=== PATIENT | female | born 2000 | race Caucasian/White ===

== ENCOUNTER 2024-02-27 08:31 | Emergency (ER) | payer OTHER, SELFPAY ==
[2024-02-27 08:47] VITALS: BP 118/84; PULSE 112; RESP 18; TEMP 36.8; O2SAT 100
[2024-02-27 09:17] LABS: EDSTREPNEGPOS1 Positive (Negative)
--- NOTE | 2024-02-27 09:17 | ED_ITS ---
HPI - URI/Sore Throat General Chief Complaint: Upper Respiratory Infection Stated Complaint: Fever/Sore Throat Time Seen by Provider: 02/27/24 09:17 Source: patient Mode of arrival: ambulatory Limitations: no limitations History of Present Illness HPI Narrative: 23-year-old female presents with complaint of sore throat since yesterday. Reports 2 days ago she had body aches, chills, fatigue, nausea. Vomited once. Patient concern for strep throat. All systems reviewed and negative except as noted above. Related Data Home Medications ?Medication ?Instructions ?Recorded ?Confirmed ?Last Taken ?Type lamotrigine 100 mg tablet mg 02/27/24 Unknown History lamotrigine 150 mg tablet mg 02/27/24 Unknown History norgestimate-ethinyl estradiol tablet 02/27/24 Unknown History 0.18 mg/0.215mg/0.25mg-35 mcg(28)tablet (Tri-Sprintec (28)) Allergies Allergy/AdvReac Type Severity Reaction Status Date / Time oxcarbazepine (From Allergy Severe Hives Verified 02/27/24 09:09 Trileptal) Penicillins Allergy Intermediate Hives Verified 02/27/24 09:09 Review of Systems Review of Systems: CONSTITUTIONAL: Denies fever Denies, chills, or sweats. EYES: Denies visual changes, redness, or discharge. ENT: Denies rhinorrhea, congestion. Reports sore throat. Denies otalgia. CARDIOVASCULAR: Denies chest pain, palpitations, or edema. RESPIRATORY: Denies cough or dyspnea. GASTROINTESTINAL: Denies abdominal pain, nausea, vomiting, or diarrhea. GENITOURINARY: Denies dysuria or hematuria. SKIN: Denies rash or itching. MUSCULOSKELETAL: Denies back pain, joint pain. Reports myalgia. NEUROLOGIC: Denies headache, numbness, or weakness. PSYCHIATRIC: Denies anxiety or depression. All other systems reviewed are negative, except as documented in HPI. PMFSH Comments At time of signature, agree with nursing past medical, surgical, social and family history. There is no relevant family history pertinent to the presenting complaint. Exam Narrative: GENERAL: This is a well-nourished, well-developed patient, in no apparent distress. HEAD: normocephalic, atraumatic. EYES: PERRL. Sclera clear/white. Vision is grossly intact. EARS: External ears normal, auditory canals clear and without drainage, TMs normal without perforation. Hearing grossly intact. NOSE: External nose normal with no obvious nasal discharge, nares without redness, no rhinorrhea. THROAT: Mucous membranes moist, erythematous with mild swelling. No exudates NECK: Neck supple, non-tender without lymphadenopathy, masses or thyromegaly. CARDIOVASCULAR: Regular rate and rhythm without murmurs, gallops, or rubs. RESPIRATORY: Clear to auscultation. Breath sounds equal bilaterally. No wheezes, rales, or rhonchi. SKIN: warm, Dry, intact with no suspicious lesions or rash, good texture and turgor. NEURO: awake, alert, and oriented to person, place and time. There were no obvious focal neurologic abnormalities. EXTREMITIES: No joint tenderness, effusion, or edema noted. No calf tenderness. Negative Homans sign bilaterally. BACK: Nontender without deformity. No CVA tenderness. Course Course Level of Care: Express Care Visit Vital Signs Vital signs: Vital Signs Temperature 36.8 C 02/27/24 08:47 Pulse Rate 112 H 02/27/24 08:47 Respiratory Rate 18 02/27/24 08:47 Blood Pressure 118/84 02/27/24 08:47 Pulse Oximetry 100 02/27/24 08:47 Oxygen Delivery Room Air 02/27/24 08:47 Temperature 36.8 C 02/27/24 08:47 Pulse Rate 112 H 02/27/24 08:47 Respiratory Rate 18 02/27/24 08:47 Blood Pressure 118/84 02/27/24 08:47 Pulse Oximetry 100 02/27/24 08:47 Oxygen Delivery Room Air 02/27/24 08:58 Reviewed MDM - URI/Sore Throat MDM Narrative Medical decision making narrative: Patient is aware of diagnosis, understands and agrees to treatment plan. Anticipatory guidance given. Patient agrees to follow-up as directed and is aware of reasons to seek care at the emergency department. Portions of this record may have been created with voice recognition software Positive rapid strep. Patient well-appearing, nontoxic. Will prescribe azithromycin to treat strep. Patient agrees with plan of care. Differential Diagnosis Differential diagnosis: Likely upper respiratory infection, sinusitis, viral infection, influenza and pharyngitis Lab Data Labs: Lab Results 02/27/24 Range/Units 09:15 POC Grp A Strep Screen Pending Discharge Plan Discharge Clinical Impression: Strep throat Patient Disposition: Home, Self-Care Condition: Stable Instructions: Antibiotic Form, Strep Throat (ED) Additional Instructions: Your strep test was positive today. Take antibiotic as prescribed until gone. Change toothbrush after taking antibiotic for 24 hours. Take Tylenol or ibuprofen every 6-8 hours as needed for pain and fever. Drink plenty water and rest. Follow-up with your primary care physician if symptoms are not improving. Patient Language: Ukrainian Prescriptions: New azithromycin 250 mg tablet See Rx Instructions .ROUTE .COMPLEX Qty: 6 0RF Rx Instructions: For 250 mg dose pack: take 500 mg today (day 1), then 250 mg for 4 days (days 2-5) No Action lamotrigine 150 mg tablet norgestimate-ethinyl estradiol [Tri-Sprintec (28)] 0.18/0.215/0.25 mg-35 mcg (28) tablet lamotrigine 100 mg tablet Follow-up/Referrals: PHYSICIAN,SHRINKER [Primary Care Provider] - Stand Alone Forms: Work/School Release IP Time of Disposition: 09:22
[2024-02-27 09:27] LABS: EDCOVIDSCREEN Negative (Negative); EDINFLUASCREEN Negative (Negative); EDINFLUBSCREEN Negative (Negative)
== END 2024-02-27 09:23 | disposition home or self-care (01) ==
PROVIDERS: Emergency Provider Nurse Practitioner Family
DX: J02.0 Streptococcal pharyngitis (principal)
CPT/HCPCS: 87426; 87804; 87880; 99203; G0463

== ENCOUNTER 2024-06-27 17:02 | Emergency (ER) | payer OTHER, SELFPAY ==
[2024-06-27 17:16] VITALS: BP 143/84; PULSE 80; RESP 16; TEMP 36.4; O2SAT 100
--- NOTE | 2024-06-27 17:18 | ED_ITS ---
HPI - General Adult General Chief complaint: Nausea/Vomiting/Diarrhea Stated complaint: LIGHT HEADED/NAUSEA/TINGLING/? ALLERGIC RXN Time Seen by Provider: 06/27/24 17:18 Source: patient Mode of arrival: ambulatory Limitations: no limitations History of Present Illness HPI narrative: 24 yo F presents with concerns for allergic reaction. Ate dinner tuesday night and about 15 minutes after felt tingly, tongue felt thick and had 1 episode of diarrhea. Took at benadryl and felt better. Woke up 5hrs later and took another benadryl. the next day was tired and slept most of the day. Since then has had intermittent tingling, whole body, fatigue and sometimes feels lightheaded. No swelling, CP or SOB. Denies abdominal pain, nausea vomiting diarrhea. Has not taking any Benadryl since 1st day of symptoms. At this time she feels normal. Is concerned that she may be continuing to have allergic reactive symptoms, unsure if she could be anxious. States she googled symptoms and is concerned she could be hypoglycemic. Has not ate very much today because she is feeling anxious. All systems reviewed and negative except as noted above. Related Data Home Medications ?Medication ?Instructions ?Recorded ?Confirmed ?Last Taken ?Type lamotrigine 100 mg tablet mg 02/27/24 Unknown History lamotrigine 150 mg tablet mg 02/27/24 Unknown History norgestimate-ethinyl estradiol tablet 02/27/24 Unknown History 0.18mg/0.215mg/0.25mg-0.035mg(28)tablet (Tri-Sprintec (28)) Allergies Allergy/AdvReac Type Severity Reaction Status Date / Time oxcarbazepine (From Allergy Severe Hives Verified 02/27/24 09:09 Trileptal) Penicillins Allergy Intermediate Hives Verified 02/27/24 09:09 Review of Systems Review of Systems: CONSTITUTIONAL: Denies fever, chills, or sweats. Reports fatigue EYES: Denies visual changes, redness, or discharge. ENT: Denies rhinorrhea, congestion, sore throat, or otalgia. CARDIOVASCULAR: Denies chest pain, palpitations, or edema. RESPIRATORY: Denies cough or dyspnea. GASTROINTESTINAL: Denies abdominal pain, nausea, vomiting, or diarrhea. GENITOURINARY: Denies dysuria or hematuria. SKIN: Denies rash or itching. MUSCULOSKELETAL: Denies back pain, joint pain, or myalgia. NEUROLOGIC: Denies headache, numbness, or weakness. Reports whole body tingling PSYCHIATRIC: Denies anxiety or depression. All other systems reviewed are negative, except as documented in HPI. PMFSH Comments At time of signature, agree with nursing past medical, surgical, social and family history. There is no relevant family history pertinent to the presenting complaint. Exam Narrative: GENERAL: This is a well-nourished, well-developed patient, in no apparent distress. HEAD: normocephalic, atraumatic. EYES: PERRL. Sclera clear/white. Vision is grossly intact. Extraocular motions intact EARS: External ears normal, auditory canals clear and without drainage, TMs normal without perforation. Hearing grossly intact. NOSE: External nose normal with no obvious nasal discharge, nares without redness, no rhinorrhea. THROAT: Mucous membranes moist, posterior pharynx clear. NECK: Neck supple, non-tender without lymphadenopathy, masses or thyromegaly. CARDIOVASCULAR: Regular rate and rhythm without murmurs, gallops, or rubs. RESPIRATORY: Clear to auscultation. Breath sounds equal bilaterally. No wheezes, rales, or rhonchi. GASTROINTESTINAL: Abdomen soft, non-tender, nondistended. Bowel sounds are active. No hepato-splenomegaly, or palpable masses. No guarding. SKIN: warm, Dry, intact with no suspicious lesions or rash, good texture and turgor. NEURO: awake, alert, and oriented to person, place and time. There were no ob vious focal neurologic abnormalities. EXTREMITIES: No joint tenderness, effusion, or edema noted. Course Course Level of Care: Express Care Visit Vital Signs Vital signs: Vital Signs Temperature 36.4 C L 06/27/24 17:16 Pulse Rate 80 06/27/24 17:16 Respiratory Rate 16 06/27/24 17:16 Blood Pressure 143/84 H 06/27/24 17:16 Pulse Oximetry 100 06/27/24 17:16 Temperature 36.4 C L 06/27/24 17:16 Pulse Rate 80 06/27/24 17:16 Respiratory Rate 16 06/27/24 17:16 Blood Pressure 143/84 H 06/27/24 17:16 Pulse Oximetry 100 06/27/24 17:16 Reviewed Medical Decision Making MDM Narrative Medical decision making narrative: Vital signs normal. Exam normal. Neurologically intact. Blood sugar 84. Patient has not had a lot tea today. Recommend she eat dinner, drink plenty of water. Will treat for allergic reaction with prednisone, Pepcid and Zyrtec. Recommend follow-up with primary care physician at next available appointment. Vital Signs Vital Signs: Vital Signs Temperature 36.4 C L 06/27/24 17:16 Pulse Rate 80 06/27/24 17:16 Respiratory Rate 16 06/27/24 17:16 Blood Pressure 143/84 H 06/27/24 17:16 Pulse Oximetry 100 06/27/24 17:16 Temperature 36.4 C L 06/27/24 17:16 Pulse Rate 80 06/27/24 17:16 Respiratory Rate 16 06/27/24 17:16 Blood Pressure 143/84 H 06/27/24 17:16 Pulse Oximetry 100 06/27/24 17:16 Lab Data Labs: Lab Results 06/27/24 Range/Units 17:38 POC Capillary Glucose 84 (65-105) mg/dl Discharge Plan Discharge Clinical Impression: Allergic reaction Qualifiers: Encounter type: initial encounter Qualified Code(s): T78.40XA - Allergy, unspecified, initial encounter Patient Disposition: Home Condition: Stable Instructions: General Allergic Reaction (ED) Additional Instructions: Your blood sugar was 84 today. This is normal. Take medications as prescribed. Take [id number] Zyrtec daily. If you continue to have symptoms of fatigue, tingling follow-up with your primary care physician for further evaluation. If you are having chest pain, difficulty breathing, swelling to her lips or tongue go to the ER. Patient Language: Libyan Prescriptions: New famotidine 20 mg tablet 20 mg PO BID 7 Days Qty: 14 0RF prednisone 20 mg tablet See Rx Instructions .ROUTE .COMPLEX Qty: 10 0RF Rx Instructions: Take 2 tablets daily for 3 days and then take 1 tablet daily for 4 days No Action lamotrigine 150 mg tablet norgestimate-ethinyl estradiol [Tri-Sprintec (28)] 0.18/0.215/0.25 mg-35 mcg (28) tablet lamotrigine 100 mg tablet azithromycin 250 mg tablet See Rx Instructions .ROUTE .COMPLEX Qty: 6 0RF Rx Instructions: For 250 mg dose pack: take 500 mg today (day 1), then 250 mg for 4 days (days 2-5) Follow-up/Referrals: Miranda,Caprice [Other] Time of Disposition: 17:50
[2024-06-27 17:43] LABS: Glucose Point of Care 84 mg/dl (65-105)
[2024-06-27 17:53] VITALS: BP 110/72
== END 2024-06-27 17:53 | disposition home or self-care (01) ==
PROVIDERS: Emergency Provider Nurse Practitioner Family
DX: T78.40XA Allergy, unspecified, initial encounter (principal)
CPT/HCPCS: 82948; 99213; G0463